=== PATIENT | female | born 2000 | race Caucasian/White ===

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

== ENCOUNTER 2019-08-28 23:30 | Emergency (ER) | payer OTHER ==
[2019-08-28 23:35] VITALS: BP 125/74; PULSE 103; RESP 18; TEMP 97.9
--- NOTE | 2019-08-28 23:59 | ED ---
Wound/Laceration HPI - General Chief Complaint: Wound/Laceration Stated Complaint: R Finger Lac Time Seen by Provider: 08/28/19 23:38 Source: patient, RN notes reviewed, old records reviewed Mode of arrival: ambulatory Limitations: no limitations - History of Present Illness Initial Comments: This is a 19-year-old female DF for evaluation patient sustained left fingertip laceration secondary to mechanical opening for cat. Patient has minimal bleeding from site denying any other injury. Patient has minimal bleeding currently which is normal., She states he feels much her related to prior. No other injury or trauma noted -: minutes(s) Extremity Location: Left: Hand Place: home Patient Tetanus UTD: Yes Context: accidental Associated Symptoms: none - Related Data Home Medications Medication Instructions Recorded Confirmed Medroxyprogesterone Acetate 150 mg IM ONCE 10/28/17 10/28/17 [Depo-Provera] Allergies Allergy/AdvReac Type Severity Reaction Status Date / Time prochlorperazine edisylate Allergy Unknown Verified 08/28/19 23:35 [From Compazine] prochlorperazine maleate Allergy Unknown Verified 08/28/19 23:35 [From Compazine] Review of Systems ROS Statement: Those systems with pertinent positive or pertinent negative responses have been documented in the HPI. ROS Other: All systems not noted in ROS Statement are negative. Past Medical History Past Medical History: No Reported History History of Any Multi-Drug Resistant Organisms: None Reported Past Surgical History: No Surgical Hx Reported, Appendectomy Past Psychological History: No Psychological Hx Reported Smoking Status: Never smoker Past Alcohol Use History: Occasional Past Drug Use History: Marijuana General Exam Limitations: no limitations General appearance: alert, in no apparent distress Head exam: Present: atraumatic, normocephalic, normal inspection Eye exam: Present: normal appearance, PERRL, EOMI. Absent: scleral icterus, conjunctival injection, periorbital swelling ENT exam: Present: normal exam, mucous membranes moist Neck exam: Present: normal inspection. Absent: tenderness, meningismus, lymphadenopathy Respiratory exam: Present: normal lung sounds bilaterally. Absent: respiratory distress, wheezes, rales, rhonchi, stridor Cardiovascular Exam: Present: regular rate, normal rhythm, normal heart sounds. Absent: systolic murmur, diastolic murmur, rubs, gallop, clicks GI/Abdominal exam: Present: soft, normal bowel sounds. Absent: distended, tenderness, guarding, rebound, rigid Extremities exam: Present: normal inspection, full ROM, normal capillary refill, other (Half to 1 cm laceration to fingertip bleeding is stopped). Absent: tenderness, pedal edema, joint swelling, calf tenderness Back exam: Present: normal inspection Neurological exam: Present: alert, oriented X3, CN II-XII intact Psychiatric exam: Present: normal affect, normal mood Skin exam: Present: warm, dry, intact, normal color. Absent: rash Course Vital Signs 08/28/19 23:32 Temperature 97.9 F Pulse Rate 103 H Respiratory 18 Rate Blood Pressure 125/74 O2 Sat by Pulse 100 Oximetry - Reevaluation(s) Reevaluation #1: Medical record is reviewed Bleeding is stopped while here in the ER Procedures - Laceration Laceration #1 Consent Obtained: verbal consent Indication: laceration Site: hand Size (cm): 1 Description: linear Size of Sutures: other (Dermabond) Medical Decision Making - Medical Decision Making 19 female to the ER for evaluation of left finger laceration. Wound is cleaned here in the ER repaired with Dermabond. No active bleeding and patient can be discharged home Disposition Clinical Impression: Laceration, Finger laceration, Laceration of index finger of left hand without complication Disposition: HOME SELF-CARE Condition: Good Instructions (If sedation given, give patient instructions): Laceration (ED), Finger Laceration (ED) Is patient prescribed a controlled substance at d/c from ED?: No Referrals: Darryl Vincent MD [Primary Care Provider] - 1-2 days
[2019-08-29] MEDS ORDERED: TOPICAL SKIN ADHESIVE 1 EACH AMP TOPICAL ONE (00:13)
== END 2019-08-29 00:49 | disposition home or self-care (01) ==
LOC: EC 23:30
DX: S61.211A Laceration without foreign body of left index finger without damage to nail, initial encounter (principal); Z79.3 Long term (current) use of hormonal contraceptives; Z88.8 Allergy status to other drugs, medicaments and biological substances; W26.8XXA Contact with other sharp object(s), not elsewhere classified, initial encounter; Y93.89 Activity, other specified
CPT/HCPCS: 12001; 99283

== ENCOUNTER → 2020-01-08 | Outpatient (CLI) | payer OTHER ==
--- NOTE | 2020-01-08 23:13 | US ---
EXAMINATION TYPE: Transabdominal DATE OF EXAM: 01/08/2020 4:23 PM COMPARISON: NONE CLINICAL HISTORY: Z36 confirm dates, O46.91. dates EXAM PERFORMED: Transabdominal (TA) EXAM MEASUREMENTS: GESTATIONAL AGE / DATING Dates by LMP: (10 weeks/6 days) EDC: 07/30/2020 Dates by First Scan: No previous this is first scan Dates by Current Scan for: (12 weeks/4 days) EDC: 07/18/2020 MATERNAL ANATOMY Uterus: 11.3 x 8.3 x 5.6 cm Right Ovary: 2.8 x 1.9 x 1.2 cm Left Ovary: 2.5 x 1.4 x 1.5 cm Post CDS / Adnexa: wnl Presence of free fluid: no Presence of corpus luteal cyst: right ovarian lesion - 1.3 x 1.4 x 0.8 cm Presence of subchorionic bleed: no GESTATION / SURVEY CRL: 6.0 cm (12 weeks/4 days) MSD: seen, not measured Yolk Sac (normal less than 6mm): Not visualized Heart Rate: 153 bpm Rhythm: Normal IUP: Viable IUP Nuchal Translucency 10-14wks (normal less than 3mm): 1.3 mm Date of LMP: 10/24/2019, G1 Beta HcG (if available): Not available at this time Single live IUP measuring 12 weeks 4 days. IMPRESSION: 1. Single intrauterine gestation estimated at 12 weeks 4 days gestation based on crown-rump length. C ardiac activity measures 153 bpm was observed during the study. 2. Complex cyst on the right ovary
== END | disposition home or self-care (01) ==
LOC: RADUSWWP 16:02
PROVIDERS: ATTEND Obstetrics & Gynecology
DX: O34.80 Maternal care for other abnormalities of pelvic organs, unspecified trimester (principal); N83.201 Unspecified ovarian cyst, right side; Z3A.12 12 weeks gestation of pregnancy
CPT/HCPCS: 76801; 76813

== ENCOUNTER 2020-07-14 00:20 | Inpatient (IN) | payer OTHER ==
[2020-07-14] MEDS ORDERED: CARBOPROST TROMETHAMINE 250 MCG/ML 1 ML AMP IM PRN (01:12)
[2020-07-14] MEDS ORDERED: LIDOCAINE 0.5% (PF) 5 MG/ML (50 ML SDV) SQ PRN (01:12)
[2020-07-14] MEDS ORDERED: METHYLERGONOVINE 0.2 MG/ML 1 ML AMP IM PRN (01:12)
[2020-07-14] MEDS ORDERED: OXYTOCIN 10 UNIT/ML 1 ML VIAL IM PRN (01:12)
[2020-07-14] MEDS ORDERED: TERBUTALINE 1 MG/ML VIAL SQ PRN (01:12)
[2020-07-14] MEDS ORDERED: OXYTOCIN 30 UNITS/500 ML NS 30 UNIT in SALINE 1 500ML.BAG IV SCH ×2 (01:15→13:00)
[2020-07-14] MEDS: LACTATED RINGERS 1,000 ML IV SCH ×4 (01:23→12:09)
[2020-07-14] MEDS ORDERED: AMPICILLIN 2,000 MG in SODIUM CHLORIDE 0.9% 100 ML IVPB ONE (01:30)
[2020-07-14 01:43] LABS: Basophils % (A) 0 %; Eosinophils # (A) 0.1 k/uL (0-0.7); Eosinophils % (A) 1 %; HCT 37.7 % (34.0-46.0); HGB 13.1 gm/dL (11.4-16.0); Lymphocytes # (A) 3.1 k/uL (1.0-4.8); Lymphocytes % (A) 28 %; MCH 30.5 pg (25.0-35.0); MCHC 34.9 g/dL (31.0-37.0); MCV 87.6 fL (80.0-100.0); Mean Platelet Volume 7.1; Monocytes # (A) 0.7 k/uL (0-1.0); Monocytes % (A) 6 %; Neutrophils # (A) 7.1 k/uL (1.3-7.7); Neutrophils % (A) 64 %; Platelet Count 279 k/uL (150-450); WBC 11.2 k/uL (3.8-10.6)
[2020-07-14] MEDS ORDERED: BUTORPHANOL 1 MG/ML 1 ML VIAL IV PRN (03:00)
[2020-07-14] MEDS ORDERED: SODIUM CHLORIDE 0.9% 100 ML BAG ONE (04:29)
[2020-07-14] MEDS ORDERED: ROPIVACAINE 5MG/ML 20ML VIAL ONE (04:29)
[2020-07-14] MEDS ORDERED: fentaNYL (PF) 50 MCG/ML 5 ML AMP ONE (04:29)
[2020-07-14] MEDS ORDERED: ONDANSETRON 4 MG/2 ML VIAL IVP STA (06:26)
[2020-07-14] MEDS: AMPICILLIN 1,000 MG in SODIUM CHLORIDE 0.9% 50 ML IVPB SCH (06:32)
[2020-07-14] MEDS ORDERED: CITRIC ACID-SODIUM CITRATE 15 ML CUP PO ONE (12:03)
[2020-07-14] MEDS ORDERED: KETOROLAC 15 MG/ML 1 ML VIAL ONE (12:05)
[2020-07-14] MEDS ORDERED: fentaNYL (PF) 50 MCG/ML 2 ML AMP ONE (12:05)
[2020-07-14] MEDS ORDERED: DEXAMETHASONE SOD PHOSPHATE 4 MG/ML 1 ML VIAL ONE (12:05)
[2020-07-14] MEDS ORDERED: ONDANSETRON 4 MG/2 ML VIAL ONE (12:05)
[2020-07-14] MEDS ORDERED: OXYTOCIN 10 UNIT/ML 1 ML VIAL ONE (12:05)
[2020-07-14] MEDS ORDERED: MORPHINE SULFATE (PF) 0.3 MG/0.3 ML SYR ONE (12:05)
[2020-07-14] MEDS ORDERED: diphenhydrAMINE 50 MG CAP PO PRN (12:48)
[2020-07-14] MEDS ORDERED: ZOLPIDEM 5 MG TAB PO PRN (12:48)
[2020-07-14] MEDS ORDERED: diphenhydrAMINE 50 MG/ML 1 ML VIAL IVP PRN ×2 (12:48)
[2020-07-14] MEDS ORDERED: METOCLOPRAMIDE 5 MG/ML 2 ML VIAL IVP PRN (12:48)
[2020-07-14] MEDS ORDERED: LANOLIN CREAM 5 GM TUBE TOPICAL PRN (12:48)
[2020-07-14] MEDS ORDERED: diphenhydrAMINE 25 MG CAP PO PRN (12:48)
[2020-07-14] MEDS ORDERED: ONDANSETRON 4 MG/2 ML VIAL IVP PRN (12:48)
[2020-07-14] MEDS ORDERED: NALOXONE 0.4 MG/ML 1 ML VIAL IV PRN (12:48)
[2020-07-14] MEDS ORDERED: SIMETHICONE 80 MG CHEWABLE PO PRN (12:48)
--- NOTE | 2020-07-14 12:52 | P.OP ---
Date of Procedure: 07/14/20 Preoperative Diagnosis: 1. at 39 weeks 2. arrest of descent Postoperative Diagnosis: 1. at 39 weeks 2. arrest of descent Procedure(s) Performed: Primary low transverse Anesthesia: epidural Surgeon: Crys Pearson [employer] #1: Lore Lora Estimated Blood Loss (ml): 600 IV fluids (ml): 800 Urine output (ml): 200 Pathology: none sent Condition: stable Disposition: floor Indications for Procedure: 20-year-old presented at 39 weeks with spontaneous rupture of membranes last night at 11:30 PM. She made slow change throughout the night and into the morning. She was 9 cm for a few hours and then started to push when she was complete. She pushed over an hour and made no descent. Informed consent was obtained and section was called. Operative Findings: Viable female, Apgars 8, 9, weight 7 lbs. 10 oz. Normal uterus, tubes, ovaries. Description of Procedure: Patient was taken to the operating room where spinal anesthesia was found be adequate. She was prepped and draped in normal sterile fashion in dorsal supine position with a leftward tilt. Pfannenstiel skin incision was made the scalpel and carried through to the underlying layer of fascia with the scalpel. Fascia was incised in midline and carried bilaterally with the Pandya scissors. The superior aspect of the fascial incision was grasped with Michael clamps elevated and the underlying rectus muscles dissected off with the Pandya's. Attention was then turned to inferior aspect of same incision which in a similar fashion was grasped tented up and the underlying rectus muscles dissected off with the Pandya's. The rectus muscles were the midline and the peritoneum was identified tented up and entered sharply with the scalpel. The incision was extended superiorly and inferiorly with good visualization of the bladder. The bladder blade was inserted and the vesicouterine peritoneum was incised the Metzenbaums then carried bilaterally and bladder flap created digitally. A low transverse incision was then made on the uterus with the scalpel. This was carried bilaterally and digital manner. Infant's head delivered atraumatically, nose and mouth bulb suctioned, cord clamped and cut, infant handed off to waiting nurses. Apgars 8,9, weight 7 lbs. 10 oz. Placenta delivered manually, intact with three-vessel cord. The uterus is exteriorized and cleared of all clots and debris. The uterine incision was closed with 0 Vicryl in a running locked fashion. Second layer of the same sutures used in imbricating fashion to obtain excellent hemostasis. Bladder flap was then reapproximated using 2-0 Vicryl in a running fashion. Both ovaries and tubes appeared normal. The uterus was placed back into the abdomen. The peritoneum was reapproximated using 2-0 Vicryl in a running fashion. The muscles were reapproximated using 2- 0 Vicryl in interrupted fashion. The fascia was reapproximated using 0 Vicryl in a running fashion. The subcutaneous tissues closed with 3-0 Vicryl running fashion. The skin was closed is[place]. Patient tolerated the procedure well, sponge and instrument counts were correct times 2 and she was taken to the recovery room in stable condition.
[2020-07-14] MEDS: MORPHINE SULFATE 4 MG/ML SYRINGE IVP PRN ×2 (15:44→21:46)
[2020-07-14] MEDS: ACETAMINOPHEN TAB 500 MG TAB PO SCH (17:43)
[2020-07-14] MEDS: KETOROLAC 15 MG/ML 1 ML VIAL IVP SCH (19:44)
[2020-07-14] MEDS: SENNOSIDES-DOCUSATE SODIUM 1 EACH TAB PO SCH (21:40)
[2020-07-15] MEDS: AMPICILLIN 1,000 MG in SODIUM CHLORIDE 0.9% 50 ML IVPB SCH (02:16)
[2020-07-15] MEDS: ACETAMINOPHEN TAB 500 MG TAB PO SCH ×3 (02:18→13:27)
[2020-07-15] MEDS: KETOROLAC 15 MG/ML 1 ML VIAL IVP SCH ×2 (02:27→08:23)
--- NOTE | 2020-07-15 07:03 | P.PN ---
Progress Note - Text Progress Note Date: 07/15/20 Postoperative day 1 status post section under spinal anesthesia, and intrathecal morphine given for postoperative analgesia, patient doing well, there is no anesthesia related complications Patient had no headache, vital signs stable Assessment and plan = postop day 1 status post , doing well there is no anesthesia related complication
[2020-07-15 07:53] LABS: Basophils % (A) 0 %; Eosinophils # (A) 0.1 k/uL (0-0.7); Eosinophils % (A) 0 %; Lymphocytes # (A) 3.6 k/uL (1.0-4.8); Lymphocytes % (A) 20 %; MCH 31.6 pg (25.0-35.0); MCHC 35.3 g/dL (31.0-37.0); MCV 89.5 fL (80.0-100.0); Monocytes % (A) 6 %; Neutrophils # (A) 12.6 k/uL (1.3-7.7); Neutrophils % (A) 72 %; Platelet Count 238 k/uL (150-450); RDW 13.3 % (11.5-15.5); WBC 17.4 k/uL (3.8-10.6)
[2020-07-15 08:17] LABS: HGB 9.2 gm/dL (11.4-16.0)
[2020-07-15] MEDS: SENNOSIDES-DOCUSATE SODIUM 1 EACH TAB PO SCH ×2 (08:23→20:42)
[2020-07-15] MEDS: IBUPROFEN 600 MG TAB PO SCH (20:42)
[2020-07-16] MEDS: ACETAMINOPHEN TAB 500 MG TAB PO SCH ×2 (00:23→07:14)
[2020-07-16] MEDS: IBUPROFEN 600 MG TAB PO SCH (03:37)
--- NOTE | 2020-07-16 08:01 | P.DS ---
Providers Date of admission: 07/14/20 00:51 Expected date of discharge: 07/16/20 Attending physician: Crys Pearson Primary care physician: Stated None - Discharge Diagnosis(es) (1) Status post primary low transverse section Current Visit: Yes Status: Acute Hospital Course: Patient presented in active labor. She underwent a low transverse for arrest of descent. course was uncomplicated. She denies nausea, vomiting, chest pain, shortness of breath or calf pain. Her pain is well- controlled. Her incision is clean, dry, intact. She'll be discharged home postoperative day #2 in stable condition to follow-up with me in one week. Plan - Discharge Summary New Discharge Prescriptions: New Ibuprofen [Motrin] 600 mg PO QID #40 tab oxyCODONE HCL [OxyIR] 5 mg PO Q4HR PRN #20 tab PRN Reason: Pain Scale 4 - 6 No Action Ondansetron [Zofran] 1 tab PO DAILY Discharge Medication List Ondansetron [Zofran] 1 tab PO DAILY 07/14/20 [History] Ibuprofen [Motrin] 600 mg PO QID #40 tab 07/16/20 [Rx] oxyCODONE HCL [OxyIR] 5 mg PO Q4HR PRN #20 tab 07/16/20 [Rx] Follow up Appointment(s)/Referral(s): Crys Pearson DO [Doctor of Osteopathic Medicine] - 1 Week Discharge Disposition: HOME SELF-CARE
--- NOTE | 2020-07-16 08:03 | P.HPOB ---
History of Present Illness H&P Date: 07/14/20 Chief Complaint: SROM. labor 20 year old presents at 39 weeks with SROM at 1130pm last night and contractions. Her cervix is making change and when I checked her at 8am she was 9cm. Category 1 heart tones. Review of Systems All systems: negative Constitutional: Denies chills, Denies fever Eyes: denies blurred vision, denies pain Ears, nose, mouth and throat: Denies headache, Denies sore throat Cardiovascular: Denies chest pain, Denies shortness of breath Respiratory: Denies cough Gastrointestinal: Denies abdominal pain, Denies diarrhea, Denies nausea, Denies vomiting Genitourinary: Denies dysuria, Denies hematuria Musculoskeletal: Denies myalgias Integumentary: Denies pruritus, Denies rash Neurological: Denies numbness, Denies weakness Psychiatric: Denies anxiety, Denies depression Endocrine: Denies fatigue, Denies weight change Past Medical History Past Medical History: No Reported History Additional Past Medical History / Comment(s): pt has hx of anxiety, endometriosis, and ovarian cysts History of Any Multi-Drug Resistant Organisms: None Reported Past Surgical History: No Surgical Hx Reported, Appendectomy Past Psychological History: No Psychological Hx Reported Smoking Status: Never smoker Past Alcohol Use History: None Reported, Occasional Past Drug Use History: Marijuana - Past Family History Mother Family Medical History: No Reported History Medications and Allergies Home Medications Medication Instructions Recorded Confirmed Type Ondansetron [Zofran] 1 tab PO DAILY 07/14/20 07/14/20 History Ibuprofen [Motrin] 600 mg PO QID #40 tab 07/16/20 Rx oxyCODONE HCL [OxyIR] 5 mg PO Q4HR PRN #20 tab 07/16/20 Rx Allergies Allergy/AdvReac Type Severity Reaction Status Date / Time prochlorperazine edisylate Allergy Unknown Verified 07/14/20 00:51 [From Compazine] prochlorperazine maleate Allergy Unknown Verified 07/14/20 00:51 [From Compazine] Exam Osteopathic Statement: *. No significant issues noted on an osteopathic structural exam other than those noted in the History and Physical/Consult. Vital Signs Temp Pulse Resp BP Pulse Ox 07/16/20 00:00 98 F 96 16 107/57 97 07/15/20 16:00 98.1 F 99 18 105/59 96 07/15/20 12:00 98.4 F 83 20 110/63 97 Intake and Output 07/15/20 07/16/20 07/16/20 22:59 06:59 14:59 Other: # Voids 1 1 # Bowel Movements 0 Heart: Regular rate and rhythm Lungs: Clear to auscultation bilaterally Abdomen: Soft, nontender Extremities: Negative Homans sign Results Result Diagrams: 07/15/20 07:29 Abnormal Lab Results - Last 24 Hours (Table) 07/15/20 Range/Units 07:29 WBC 17.4 H (3.8-10.6) k/uL RBC 2.90 L (3.80-5.40) m/uL Hgb 9.2 L D (11.4-16.0) gm/dL Hct 26.0 L (34.0-46.0) % Neutrophils # 12.6 H (1.3-7.7) k/uL Assessment and Plan (1) Normal labor Current Visit: Yes Status: Acute Code(s): O80 - ENCOUNTER FOR FULL-TERM UNCOMPLICATED DELIVERY; Z37.9 - OUTCOME OF DELIVERY, UNSPECIFIED SNOMED Code(s): 59901179 Plan: 1. expectant management
[2020-07-16 08:17] VITALS: BP 112/72; PULSE 89; RESP 18; TEMP 98.4
[2020-07-16] MEDS: SENNOSIDES-DOCUSATE SODIUM 1 EACH TAB PO SCH (09:42)
== END 2020-07-16 11:30 | disposition home or self-care (01) | DRG 788 ==
LOC: FBPOP 00:20 → 4FBP 00:51
PROVIDERS: ADMIT Obstetrics & Gynecology; ATTEND Obstetrics & Gynecology
PROC: 10D00Z1 Extraction of Products of Conception, Low, Open Approach (ICD-10-PCS; principal; 2020-07-14 12:12)
DX: O62.1 Secondary uterine inertia (principal); Z37.0 Single live birth; Z3A.39 39 weeks gestation of pregnancy
CPT/HCPCS: 59025; 84112; 85025; 86850; 86900; 86901; 99213

== ENCOUNTER 2020-10-17 21:21 | Emergency (ER) | payer OTHER ==
[2020-10-17 21:26] VITALS: TEMP 97.3
[2020-10-17] MEDS ORDERED: IBUPROFEN 600 MG TAB PO STA (21:56)
--- NOTE | 2020-10-17 22:20 | XR ---
EXAMINATION TYPE: XR foot complete LT DATE OF EXAM: 10/17/2020 COMPARISON: NONE HISTORY: Foot pain TECHNIQUE: 3 views FINDINGS: Metatarsals are intact. I see no fracture nor dislocation. Joint spaces are normal. There i s minimal soft tissue swelling of the forefoot. The toes appear intact. IMPRESSION: No fracture.. Minimal soft tissue swelling.
--- NOTE | 2020-10-17 22:26 | ED ---
Lower Extremity Injury HPI - General Chief Complaint: Extremity Injury, Lower Stated Complaint: Left ankle sprain Time Seen by Provider: 10/17/20 21:27 Source: patient Mode of arrival: wheelchair Limitations: no limitations - History of Present Illness Initial Comments: Patient is a 20-year-old female presenting to the emergency Department with complaints of pain in her left foot. Patient states she was doing the float down all day, when she came back to shore and stepped out of her tube she twisted her left foot. She has pain and some mild swelling present. She denies any left ankle pain or left knee pain. A previous injuries to her left foot or surgeries. She has no further complaints. - Related Data Home Medications Medication Instructions Recorded Confirmed Ondansetron [Zofran] 1 tab PO DAILY 07/14/20 07/14/20 Previous Rx's Medication Instructions Recorded Ibuprofen [Motrin] 600 mg PO QID #40 tab 07/16/20 oxyCODONE HCL [OxyIR] 5 mg PO Q4HR PRN #20 tab 07/16/20 Allergies Allergy/AdvReac Type Severity Reaction Status Date / Time prochlorperazine edisylate Allergy Unknown Verified 10/17/20 21:26 [From Compazine] prochlorperazine maleate Allergy Unknown Verified 10/17/20 21:26 [From CADsurf] Review of Systems ROS Statement: Those systems with pertinent positive or pertinent negative responses have been documented in the HPI. ROS Other: All systems not noted in ROS Statement are negative. Past Medical History Past Medical History: No Reported History Additional Past Medical History / Comment(s): pt has hx of anxiety, endometriosis, and ovarian cysts History of Any Multi-Drug Resistant Organisms: None Reported Past Surgical History: Appendectomy, Section Past Psychological History: No Psychological Hx Reported Smoking Status: Never smoker Past Alcohol Use History: Occasional Past Drug Use History: Marijuana - Past Family History Mother Family Medical History: No Reported History General Exam - General Exam Comments Initial Comments: GENERAL: Patient is well-developed and well-nourished. Patient is nontoxic and in no acute distress. HEAD: Atraumatic, normocephalic. EYES: Pupils equal round and reactive to light, extraocular movements intact, sclera anicteric, conjunctiva are normal. Eyelids were unremarkable. LUNGS: Unlabored respirations. Breath sounds clear to auscultation bilaterally and equal. No wheezes rales or rhonchi. HEART: Regular rate and rhythm without murmurs, rubs or gallops. MUSCULOSKELETAL: pain with palpation of the lateral aspect of the left foot, no pain of left ankle. She does have some mild swelling present and no obvious deformity, no redness. Neurovascular intact. No clubbing or cyanosis. NEUROLOGICAL: Patient is alert and oriented x 3. SKIN: Warm, Dry, normal turgor, no rashes or lesions noted. Limitations: no limitations Course Vital Signs 10/17/20 10/17/20 21:24 22:35 Temperature 97.3 F L Pulse Rate 116 H 98 Respiratory 22 16 Rate Blood Pressure 109/70 110/72 O2 Sat by Pulse 99 99 Oximetry Medical Decision Making - Medical Decision Making patient is a 20-year-old female here with left foot pain after she twisted it while stepping off of her tube. X-rays today reveal no acute fractures dislocations. Discussed with patient this is a foot sprain. Recommended ice to the area, ibuprofen for discomfort. I did give her dose of ibuprofen here. She is stable for discharge, she can follow up with her family doctor. Discussed with Dr. Pearce. Disposition Clinical Impression: Sprain of left foot Disposition: HOME SELF-CARE Condition: Stable Instructions (If sedation given, give patient instructions): Foot Sprain (ED) Additional Instructions: Please return to the Emergency Department if symptoms worsen or any other concerns. Please apply ice to the area, take Tylenol or ibuprofen for any discomfort. Follow up with your physician if symptoms persist after one week without improvement. Is patient prescribed a controlled substance at d/c from ED?: No Referrals: None,Stated [Primary Care Provider] - 1-2 days Time of Disposition: 22:26
[2020-10-17 22:36] VITALS: BP 110/72; PULSE 98; RESP 16
== END 2020-10-17 22:36 | disposition home or self-care (01) ==
LOC: EC 21:21
DX: S93.602A Unspecified sprain of left foot, initial encounter (principal); F41.9 Anxiety disorder, unspecified; F12.90 Cannabis use, unspecified, uncomplicated; X50.1XXA Overexertion from prolonged static or awkward postures, initial encounter
CPT/HCPCS: 99283

== ENCOUNTER → 2021-08-30 | Outpatient (CLI) | payer OTHER ==
[2021-08-30 18:04] LABS: Basophils # (A) 0.05 X 10*3/uL (0.00-0.10); Basophils % (A) 0.6 %; Eosinophils # (A) 0.16 X 10*3/uL (0.04-0.35); HCT 45.8 % (37.2-46.3); HGB 15.1 g/dL (12.0-15.0); Immature Grans, Automated 0.3 %; Lymphocytes # (A) 2.89 X 10*3/uL (0.90-5.00); Lymphocytes % (A) 36.6 %; MCH 29.2 pg (27.0-32.0); MCV 88.6 fL (80.0-97.0); Mean Platelet Volume 9.5 fL (9.5-12.2); Monocytes % (A) 5.1 %; NRBC Per 100 WBC 0 /100 WBCS (0.0-0.0); Neutrophils # (A) 4.37 X 10*3/uL (1.80-7.70); Neutrophils % (A) 55.4 %; Platelet Count 337 X 10*3/uL (140-440); RBC 5.17 X 10*6/uL (4.10-5.20); RDW 12.3 % (11.5-14.5); WBC 7.89 X 10*3/uL (4.50-10.00)
[2021-08-30 18:19] LABS: African American GFR (CKD) 118.1 (60.0-200.0); Albumin 3.8 g/dL (3.8-4.9); Albumin/Globulin Ratio 2.03 (1.60-3.17); BUN/Creat Ratio 8.75 Ratio (12.00-20.00); Blood Urea Nitrogen 7.1 mg/dL (9.0-27.0); Calcium 9.1 mg/dL (8.7-10.3); Carbon Dioxide 22.3 mmol/L (20.0-27.5); Globulin 1.9 g/dL (1.6-3.3); HDL Cholesterol 30.5 mg/dL (40.00-60.00); Non-African American GFR(CKD) 101.9 (60.0-200.0); Potassium 3.7 mmol/L (3.5-5.5); T4, Free (Free Thyroxine) 1.2 ng/dL (0.800-1.800); Total Bilirubin 0.4 mg/dL (0.30-1.20); Total Protein 5.7 g/dL (6.2-8.2); Triglycerides 46.5 mg/dL (0.00-149.00)
[2021-08-30 18:44] LABS: Chol/HDL Ratio 1.91 Ratio; LDL Cholesterol,Direct Reflex 20.6 mg/dL (0.00-129.00)
== END | disposition home or self-care (01) ==
LOC: LABWHC1 11:30
PROVIDERS: ATTEND Family Medicine
DX: Z00.00 Encounter for general adult medical examination without abnormal findings (principal); Z11.59 Encounter for screening for other viral diseases
CPT/HCPCS: 36415; 80053; 80061; 83721; 84439; 84443; 85025; 86803

== ENCOUNTER → 2021-09-21 | Outpatient (CLI) | payer OTHER ==
[2021-09-21 22:27] LABS: African American GFR (CKD) 104.5 (60.0-200.0); Anion Gap 10.4 mmol/L (10.00-18.00); BUN/Creat Ratio 19.11 Ratio (12.00-20.00); Blood Urea Nitrogen 17.2 mg/dL (9.0-27.0); Calcium 9.2 mg/dL (8.7-10.3); Carbon Dioxide 23.6 mmol/L (20.0-27.5); Non-African American GFR(CKD) 90.1 (60.0-200.0); Potassium 3.9 mmol/L (3.5-5.5)
== END | disposition home or self-care (01) ==
LOC: LABWHC1 09:54
PROVIDERS: ATTEND Family Medicine
DX: R73.9 Hyperglycemia, unspecified (principal)
CPT/HCPCS: 36415; 80048; 83036

== ENCOUNTER 2022-11-05 17:38 | Emergency (ER) | payer OTHER ==
[2022-11-05 17:42] VITALS: TEMP 98.2
[2022-11-05] MEDS ORDERED: KETOROLAC 15 MG/ML 1 ML VIAL IVP STA (18:23)
[2022-11-05] MEDS ORDERED: LIDOCAINE 1% INJ 10MG/ML (20 ML MDV) SQ ONE (18:23)
[2022-11-05 18:44] LABS: Basophils % (A) 0 %; Eosinophils # (A) 0.4 k/uL (0-0.7); Eosinophils % (A) 3 %; HCT 43.7 % (34.0-46.0); Lymphocytes # (A) 3.2 k/uL (1.0-4.8); Lymphocytes % (A) 30 %; MCH 30.2 pg (25.0-35.0); MCHC 34.4 g/dL (31.0-37.0); MCV 87.7 fL (80.0-100.0); Mean Platelet Volume 7.4; Monocytes # (A) 0.6 k/uL (0-1.0); Monocytes % (A) 5 %; Neutrophils # (A) 6.3 k/uL (1.3-7.7); Neutrophils % (A) 59 %; Platelet Count 380 k/uL (150-450); RBC 4.98 m/uL (3.80-5.40); RDW 12.4 % (11.5-15.5); WBC 10.7 k/uL (3.8-10.6)
[2022-11-05 18:57] LABS: ALT 43 U/L (4-34); AST 33 U/L (14-36); African American GFR (CKD) >90 (>60 ml/min/1.73 sqM); Albumin 4.1 g/dL (3.5-5.0); Alkaline Phosphatase 53 U/L (38-126); Anion Gap 10 mmol/L; Blood Urea Nitrogen 14 mg/dL (7-17); Calcium 9.5 mg/dL (8.4-10.2); Carbon Dioxide 25 mmol/L (22-30); Chloride 105 mmol/L (98-107); Glucose 94 mg/dL (74-99); Non-African American GFR(CKD) >90 (>60 ml/min/1.73 sqM); Sodium 140 mmol/L (137-145); Total Bilirubin 0.6 mg/dL (0.2-1.3); Total Protein 7.2 g/dL (6.3-8.2)
[2022-11-05] MEDS ORDERED: CEPHALEXIN 500 MG CAP PO STA (19:02)
[2022-11-05] MEDS ORDERED: SULFAMETHOX-TMP 800-160MG 1 EACH TAB PO STA (19:03)
--- NOTE | 2022-11-05 19:44 | ED ---
Skin/Abscess/FB HPI - General Chief complaint: Skin/Abscess/Foreign Body Stated complaint: Rash Time Seen by Provider: 11/05/22 17:46 Source: patient Mode of arrival: ambulatory Limitations: no limitations - History of Present Illness Initial comments: Patient is a 22-year-old female who presents to the emergency department for rash. Patient reports a red spot with pain in her inner right thigh which started approximately 5 days ago. States she has been delayed here on twice. Initially they told her it was an ALLERGIC reaction and 2 days ago told her it was an infection she was placed on antibiotics. Patient states the redness is worsening now traveling down her thigh. No fever or chills. No nausea or vomiting - Related Data Home Medications Medication Instructions Recorded Confirmed Ondansetron [Zofran] 1 tab PO DAILY 07/14/20 07/14/20 Previous Rx's Medication Instructions Recorded Ibuprofen [Motrin] 600 mg PO QID #40 tab 07/16/20 oxyCODONE HCL [OxyIR] 5 mg PO Q4HR PRN #20 tab 07/16/20 Lidocaine 5% Patch [Lidoderm 5% 1 patch TOPICAL DAILY PRN 14 Days 09/24/22 Patch] #14 patch Cephalexin [Keflex] 500 mg PO Q6HR #40 cap 11/05/22 Ibuprofen [Motrin] 800 mg PO Q6HR #30 tab 11/05/22 Sulfamethox-Tmp 800-160Mg [Bactrim 1 each PO Q12HR #20 tab 11/05/22 Ds] Allergies Allergy/AdvReac Type Severity Reaction Status Date / Time prochlorperazine edisylate Allergy Unknown Verified 11/05/22 17:42 [From Compazine] prochlorperazine maleate Allergy Unknown Verified 11/05/22 17:42 [From Compazine] Review of Systems ROS Statement: Those systems with pertinent positive or pertinent negative responses have been documented in the HPI. ROS Other: All systems not noted in ROS Statement are negative. Past Medical History Past Medical History: No Reported History Additional Past Medical History / Comment(s): pt has hx of anxiety, endometriosis, and ovarian cysts History of Any Multi-Drug Resistant Organisms: None Reported Past Surgical History: Appendectomy, Section Past Psychological History: No Psychological Hx Reported Smoking Status: Never smoker Past Alcohol Use History: Occasional Past Drug Use History: Marijuana - Past Family History Mother Family Medical History: No Reported History General Exam Limitations: no limitations General appearance: alert Respiratory exam: Present: normal lung sounds bilaterally. Absent: respiratory distress, wheezes, rales, rhonchi, stridor Cardiovascular Exam: Present: regular rate, normal rhythm, normal heart sounds. Absent: systolic murmur, diastolic murmur, rubs, gallop, clicks Extremities exam: Present: other (3 by 2 cm abscess anterior-medial right inner thigh with mild fluctuance. Surrounding erythema over anterior thigh ending before the knee. Neurovascularly intact. Full range of motion) Neurological exam: Present: alert Psychiatric exam: Present: normal affect, normal mood Skin exam: Present: warm, dry, intact, normal color. Absent: rash Course Vital Signs 11/05/22 11/05/22 17:39 19:53 Temperature 98.2 F Pulse Rate 79 77 Respiratory 20 18 Rate Blood Pressure 113/79 114/76 O2 Sat by Pulse 99 97 Oximetry Procedures - Incision & Drainage Site: lower extremity I&D Cleaning Method: Betadine Sterile Field Used?: Yes Scalpel Used: #15 I&D Drainage Obtained: Pus, Blood Packing: Iodoform Culture Obtained?: Yes Patient Tolerated Procedure: well, no complications Medical Decision Making - Medical Decision Making Was pt. sent in by a medical professional or institution (Dr. PA, ROAD MANAGER, urgent care, hospital, or skilled nursing...) When possible be specific @ -No Did you speak to anyone other than the patient for history (EMS, parent, family, police, friend...)? What history was obtained from this source @ -No Did you review nursing and triage notes (agree or disagree)? Why? @ -I reviewed and agree with nursing and triage notes Were old charts reviewed (outside hosp., previous admission, EMS record, old EKG, old radiological studies, urgent care reports/EKG's, skilled nursing records)? Report findings @ -No old charts were reviewed Differential Diagnosis (chest pain, altered mental status, abdominal pain women, abdominal pain men, vaginal bleeding, weakness, fever, dyspnea, syncope, headache, dizziness, GI bleed, back pain, seizure, CVA, palpatations, mental health)? @ -ALLERGIC reaction, cellulitis, abscess EKG interpreted by me (3pts min.). @ -As above X-rays interpreted by me (1pt min.). @ -None done CT interpreted by me (1pt min.). @ -None done U/S interpreted by me (1pt. min.). @ -None done What testing was considered but not performed or refused? (CT, X-rays, U/S, labs)? Why? @ -None What meds were considered but not given or refused? Why? @ -None Did you discuss the management of the patient with other professionals (professionals i.e. DrRobert, PA, ROAD MANAGER, lab, RT, psych nurse, social work supervisor, director merit system, teacher, ict help desk officer, foster care case manager)? Give summary @ -No Was smoking cessation discussed for >3mins.? @ -No Was critical care preformed (if so, how long)? @ -No Were there social determinants of health that impacted care today? How? (Homelessness, low income, unemployed, alcoholism, drug addiction, transportation, low edu. Level, literacy, decrease access to med. care, intermediate, rehab)? @ -No Was there de-escalation of care discussed even if they declined (Discuss DNR or withdrawal of care, Hospice)? DNR status @ -No What co-morbidities impacted this encounter? (DM, HTN, Smoking, COPD, CAD, Cancer, CVA, ARF, Chemo, Hep., AIDS, mental health diagnosis, sleep apnea, mor bid obesity)? @ -None Was patient admitted / discharged? Hospital course, mention meds given and route, prescriptions, significant lab abnormalities, going to OR and other pertinent info. @ -Patient has abscess to the anterior-medial aspect of right inner thigh. She has surrounding cellulitis traveling down the anterior aspect of thigh ending just before knee. No systemic symptoms or signs. Very minimal leukocytosis at 10.7. I performed incision and drainage. Thick purulent fluid was drained. Packing was performed. Wound culture pending. Discussed abscess care in detail. Patient placed on Keflex and Bactrim. She will follow up with her primary care provider. Strict return parameters discussed. Undiagnosed new problem with uncertain prognosis? @ -No Drug Therapy requiring intensive monitoring for toxicity (Heparin, Nitro, Insulin, Cardizem)? @ -No Were any procedures done? @ -[Incision and drainage Diagnosis/symptom? @ -Abscess, cellulitis Acute, or Chronic, or Acute on Chronic? @ -Acute Uncomplicated (without systemic symptoms) or Complicated (systemic symptoms)? @ -Uncomplicated Side effects of treatment? @ -No Exacerbation, Progression, or Severe Exacerbation? @ -No Poses a threat to life or bodily function? How? (Chest pain, [place], HI, pneumonia, PE, COPD, DKA, ARF, appy, cholecystitis, CVA, Diverticulitis, Homicidal, Suicidal, threat to staff... and all critical care pts) @ -No Dr. Pearce is my attending - Lab Data Result diagrams: 11/05/22 18:33 11/05/22 18:33 Lab Results 11/05/22 11/05/22 11/05/22 Range/Units 18:33 18:33 18:33 WBC 10.7 H (3.8-10.6) k/uL RBC 4.98 (3.80-5.40) m/uL Hgb 15.0 (11.4-16.0) gm/dL Hct 43.7 (34.0-46.0) % MCV 87.7 (80.0-100.0) fL MCH 30.2 (25.0-35.0) pg MCHC 34.4 (31.0-37.0) g/dL RDW 12.4 (11.5-15.5) % Plt Count 380 (150-450) k/uL MPV 7.4 Neutrophils % 59 % Lymphocytes % 30 % Monocytes % 5 % Eosinophils % 3 % Basophils % 0 % Neutrophils # 6.3 (1.3-7.7) k/uL Lymphocytes # 3.2 (1.0-4.8) k/uL Monocytes # 0.6 (0-1.0) k/uL Eosinophils # 0.4 (0-0.7) k/uL Basophils # 0.0 (0-0.2) k/uL Sodium 140 (137-145) mmol/L Potassium 4.0 (3.5-5.1) mmol/L Chloride 105 (98-107) mmol/L Carbon Dioxide 25 (22-30) mmol/L Anion Gap 10 mmol/L BUN 14 (7-17) mg/dL Creatinine 0.72 (0.52-1.04) mg/dL Est GFR (CKD-EPI)AfAm >90 (>60 ml/min/1.73 sqM) Est GFR (CKD-EPI)NonAf >90 (>60 ml/min/1.73 sqM) Glucose 94 (74-99) mg/dL Plasma Lactic Acid Raymond 0.7 (0.7-2.0) mmol/L Calcium 9.5 (8.4-10.2) mg/dL Total Bilirubin 0.6 (0.2-1.3) mg/dL AST 33 (14-36) U/L ALT 43 H (4-34) U/L Alkaline Phosphatase 53 (38-126) U/L Total Protein 7.2 (6.3-8.2) g/dL Albumin 4.1 (3.5-5.0) g/dL Disposition Clinical Impression: Abscess, Cellulitis Disposition: HOME SELF-CARE Condition: Good Instructions (If sedation given, give patient instructions): Abscess Incision and Drainage (ED), Abscess (ED) Additional Instructions: Take antibiotic as directed. Please keep packing in as long as possible to keep the pathway for continuous drainage. You may take the packing out when antibiotics are finished. Use warm compress throughout the day to assist drainage. Change dressing every 24 hours or if saturated. Keep wound clean and dry. Wash the wound with a mild soap during dressing change and be sure to dry thoroughly. If you need more dressing supplies or tape you can find some at a local pharmacy. Take Tylenol or Motrin for pain. Follow-up with primary care provider in 1 to 2 days. Return to the emergency department if you experience new, concerning, or worsening symptoms. Prescriptions: Sulfamethox-Tmp 800-160Mg [Bactrim Ds] 1 each PO Q12HR #20 tab Cephalexin [Keflex] 500 mg PO Q6HR #40 cap Ibuprofen [Motrin] 800 mg PO Q6HR #30 tab Is patient prescribed a controlled substance at d/c from ED?: No Referrals: Darryl Vincent MD [Primary Care Provider] - 1-2 days
[2022-11-05 19:54] VITALS: BP 114/76; PULSE 77; RESP 18
== END 2022-11-05 19:54 | disposition home or self-care (01) ==
LOC: EC 17:38
DX: L02.415 Cutaneous abscess of right lower limb (principal); L03.115 Cellulitis of right lower limb; B95.62 Methicillin resistant Staphylococcus aureus infection as the cause of diseases classified elsewhere; F12.90 Cannabis use, unspecified, uncomplicated; Z88.8 Allergy status to other drugs, medicaments and biological substances
CPT/HCPCS: 99283; 96374; 10060; 36415; 80053; 83605; 85025; 87070; 87205; 87077; 87186; J2001; J1885

== ENCOUNTER 2023-02-16 15:40 | Emergency (ER) | payer OTHER ==
[2023-02-16 16:02] VITALS: BP 112/75; PULSE 89; RESP 18; TEMP 97.9
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
== END 2023-02-16 19:16 | disposition home or self-care (01) ==
LOC: EC 15:40
DX: S09.90XA Unspecified injury of head, initial encounter (principal); F12.90 Cannabis use, unspecified, uncomplicated; Z88.8 Allergy status to other drugs, medicaments and biological substances; V89.2XXA Person injured in unspecified motor-vehicle accident, traffic, initial encounter; Y92.411 Interstate highway as the place of occurrence of the external cause
CPT/HCPCS: 70450; 71046; 72125; 81025; 99285

== ENCOUNTER 2023-02-21 17:03 | Emergency (ER) | payer OTHER ==
[2023-02-21 18:05] VITALS: TEMP 97.5
--- NOTE | 2023-02-21 18:09 | ED ---
Female Urogenital HPI - General Source: patient, RN notes reviewed Mode of arrival: ambulatory Limitations: no limitations <Sarah Monzon - Last Filed: 02/21/23 18:08> - General Source: patient, RN notes reviewed Mode of arrival: ambulatory Limitations: no limitations <Angle Okeefe - Last Filed: 02/22/23 01:54> - General Chief complaint: Vaginal Bleeding Stated complaint: Camping/Vaginal Bleeding-4wks Time Seen by Provider: 02/21/23 18:08 - History of Present Illness Initial comments: Patient is a 22-year-old female presented ER chief complaint of abdominal cramping and vaginal bleeding. Patient is but is unsure her gestation. Patient is endorsing some dizziness and lightheadedness. Patient denies any fevers, chills, night sweats, shortness of breath, chest pain. (Sarah Monzon) 22-year-old female presents to the emergency department for evaluation of abdominal cramping and vaginal bleeding. Patient states that she believes she is around 4 weeks . Last menstrual period [id number]. She states that 3 days ago she had a positive test at home. Today she noticed some lower abdominal cramping with associated bleeding. She states that it is light bleeding. She denies fever, chills. (Angle Okeefe) - Related Data Home Medications Medication Instructions Recorded Confirmed Ondansetron [Zofran] 1 tab PO DAILY 07/14/20 07/14/20 Previous Rx's Medication Instructions Recorded Ibuprofen [Motrin] 600 mg PO QID #40 tab 07/16/20 oxyCODONE HCL [OxyIR] 5 mg PO Q4HR PRN #20 tab 07/16/20 Lidocaine 5% Patch [Lidoderm 5% 1 patch TOPICAL DAILY PRN 14 Days 09/24/22 Patch] #14 patch Cephalexin [Keflex] 500 mg PO Q6HR #40 cap 11/05/22 Ibuprofen [Motrin] 800 mg PO Q6HR #30 tab 11/05/22 Sulfamethox-Tmp 800-160Mg [Bactrim 1 each PO Q12HR #20 tab 11/05/22 Ds] Albuterol Inhaler [Ventolin Hfa 1 - 2 puff INHALATION Q6H PRN #1 11/26/22 Inhaler] each Benzonatate [Tessalon Perles] 100 mg PO TID PRN #15 capsule 11/26/22 predniSONE 10 mg PO DIRECTED #12 tab 11/26/22 Allergies Allergy/AdvReac Type Severity Reaction Status Date / Time prochlorperazine edisylate Allergy Unknown Verified 02/21/23 17:46 [From Compazine] prochlorperazine maleate Allergy Unknown Verified 02/21/23 17:46 [From Compazine] Review of Systems ROS Other: All systems not noted in ROS Statement are negative. <Sarah Monzon - Last Filed: 02/21/23 18:08> ROS Other: All systems not noted in ROS Statement are negative. <Angle Okeefe - Last Filed: 02/22/23 01:54> ROS Statement: Those systems with pertinent positive or pertinent negative responses have been documented in the HPI. Past Medical History Past Medical History: No Reported History Additional Past Medical History / Comment(s): pt has hx of anxiety, endometriosis, and ovarian cysts History of Any Multi-Drug Resistant Organisms: MRSA Date of last positivie culture/infection: 11/05/22 MDRO Source:: Right Leg Past Surgical History: Appendectomy, Section Past Psychological History: No Psychological Hx Reported Smoking Status: Never smoker Past Alcohol Use History: Occasional Past Drug Use History: Marijuana - Past Family History Mother Family Medical History: No Reported History <Sarah Monzon - Last Filed: 02/21/23 18:08> General Exam Limitations: no limitations <Sarah Monzon - Last Filed: 02/21/23 18:08> Limitations: no limitations General appearance: alert, in no apparent distress Head exam: Present: atraumatic, normocephalic, normal inspection Eye exam: Present: normal appearance, PERRL, EOMI. Absent: scleral icterus, conjunctival injection, periorbital swelling ENT exam: Present: normal exam, mucous membranes moist Neck exam: Present: normal inspection. Absent: tenderness, meningismus, lymphadenopathy Respiratory exam: Present: normal lung sounds bilaterally. Absent: respiratory distress, wheezes, rales, rhonchi, stridor Cardiovascular Exam: Present: regular rate, normal rhythm, normal heart sounds. Absent: systolic murmur, diastolic murmur, rubs, gallop, clicks GI/Abdominal exam: Present: soft, normal bowel sounds. Absent: distended, t enderness, guarding, rebound, rigid Extremities exam: Present: normal inspection Back exam: Present: normal inspection Neurological exam: Present: alert, oriented X3 Psychiatric exam: Present: normal affect, normal mood Skin exam: Present: warm, dry, intact, normal color. Absent: rash <Angle Okeefe - Last Filed: 02/22/23 01:54> - General Exam Comments Initial Comments: Visual Physical Exam Vital signs reviewed General: Well-appearing, nontoxic, no acute distress. Head: Normocephalic, atraumatic Eyes: PERRLA, EOMI ENT: Airway patent Chest: Nonlabored breathing Skin: No visual rash, normal skin tone Neuro: Alert and oriented 3 Musculoskeletal: No gross abnormalities (Sarah Monzon) Course Vital Signs 02/21/23 02/21/23 02/21/23 17:43 21:13 21:57 Temperature 97.5 F L Pulse Rate 82 80 71 Respiratory 20 18 18 Rate Blood Pressure 125/85 110/77 120/87 O2 Sat by Pulse 98 98 99 Oximetry Medical Decision Making <Sarah Monzon - Last Filed: 02/21/23 18:08> - Lab Data Result diagrams: 02/21/23 17:51 02/21/23 17:51 <Angle Okeefe - Last Filed: 02/22/23 01:54> - Medical Decision Making I performed the quick note portion of the exam. Electronically signed by Sarah Monzon PA-C (Sarah Monzon) Was pt. sent in by a medical professional or institution (NINOSKA Sweet, PRINTER MAINTAINER, urgent care, hospital, or half-way...) When possible be specific @ -No Did you speak to anyone other than the patient for history (EMS, parent, family, police, friend...)? What history was obtained from this source @ -No Did you review nursing and triage notes (agree or disagree)? Why? @ -I reviewed and agree with nursing and triage notes Were old charts reviewed (outside hosp., previous admission, EMS record, old EKG, old radiological studies, urgent care reports/EKG's, half-way records)? Report findings @ -No old charts were reviewed Differential Diagnosis (chest pain, altered mental status, abdominal pain women, abdominal pain men, vaginal bleeding, weakness, fever, dyspnea, syncope, headache, dizziness, GI bleed, back pain, seizure, CVA, palpatations, mental health, musculoskeletal)? @ -Differential Vaginal Bleeding: Spontaneous , threatened , molar , ectopic , bloody show, incompetent cervix, abruptioplacenta, placenta previa, uterine rupture, dysfunctional uterine bleeding, hemorrhage, uterine fibroids, this is not meant to be an all-inclusive list. EKG interpreted by me (3pts min.). @ -None X-rays interpreted by me (1pt min.). @ -None done CT interpreted by me (1pt min.). @ -None done U/S interpreted by me (1pt. min.). @ -Ultrasound shows no evidence of intrauterine at this time What testing was considered but not performed or refused? (CT, X-rays, U/S, labs)? Why? @ -None What meds were considered but not given or refused? Why? @ -None Did you discuss the management of the patient with other professionals (professionals i.e. , PA, PRINTER MAINTAINER, lab, RT, psych nurse, social worker assistant, bark skinner, teacher, senior credit officer, medical case worker)? Give summary @ -No Was smoking cessation discussed for >3mins.? @ -No Was critical care preformed (if so, how long)? @ -No Were there social determinants of health that impacted care today? How? (Homelessness, low income, unemployed, alcoholism, drug addiction, transportation, low edu. Level, literacy, decrease access to med. care, retirement, rehab)? @ -No Was there de-escalation of care discussed even if they declined (Discuss DNR or withdrawal of care, Hospice)? DNR status @ -No What co-morbidities impacted this encounter? (DM, HTN, Smoking, COPD, CAD, Cancer, CVA, ARF, Chemo, Hep., AIDS, mental health diagnosis, sleep apnea, morbid obesity)? @ -None Was patient admitted / discharged? Hospital course, mention meds given and route, prescriptions, significant lab abnormalities, going to OR and other pertinent info. @ -Discharged. Patient presented to the emergency department for evaluation of vaginal bleeding in . Patient states that she had a positive test 3 days ago. Today she notes bright red blood coming from the vagina which she states is light not utilizing an entire pad. Laboratory studies obtained.CBC shows WBC 11.2, hemoglobin 14.6; CMP unremarkable; UA shows negative nitrite, small leukocyte esterase, 8 squamous cells here forculture. Ultrasound shows no signs of intrauterine uterine at this time. Patient advised on findings and current hCG. Patient given lab slip for redrawn in 48 hours and advised to follow-up with her MUSIC COMPOSITION TEACHER. Patient understands. We'll plan. Patient stable at time of discharge. Case discussed with Dr. Cunha Undiagnosed new problem with uncertain prognosis? @ -No Drug Therapy requiring intensive monitoring for toxicity (Heparin, Nitro, Insulin, Cardizem)? @ -No Were any procedures done? @ -No Diagnosis/symptom? @ -vaginal bleeding Acute, or Chronic, or Acute on Chronic? @ -acute Uncomplicated (without systemic symptoms) or Complicated (systemic symptoms)? @ -uncomplicated Side effects of treatment? @ -No Exacerbation, Progression, or Severe Exacerbation? @ -No Poses a threat to life or bodily function? How? (Chest pain, [place], [place], pneumonia, PE, COPD, DKA, ARF, appy, cholecystitis, CVA, Diverticulitis, Homicidal, Suicida l, threat to staff... and all critical care pts) @ -No (Angle Okeefe) - Lab Data Lab Results 02/21/23 02/21/23 02/21/23 Range/Units 17:51 17:51 17:51 WBC 11.2 H (3.8-10.6) k/uL RBC 4.89 (3.80-5.40) m/uL Hgb 14.6 (11.4-16.0) gm/dL Hct 42.2 (34.0-46.0) % MCV 86.3 (80.0-100.0) fL MCH 29.9 (25.0-35.0) pg MCHC 34.6 (31.0-37.0) g/dL RDW 12.2 (11.5-15.5) % Plt Count 358 (150-450) k/uL MPV 6.7 Neutrophils % 61 % Lymphocytes % 31 % Monocytes % 4 % Eosinophils % 2 % Basophils % 1 % Neutrophils # 6.8 (1.3-7.7) k/uL Lymphocytes # 3.5 (1.0-4.8) k/uL Monocytes # 0.4 (0-1.0) k/uL Eosinophils # 0.3 (0-0.7) k/uL Basophils # 0.1 (0-0.2) k/uL Sodium 141 (137-145) mmol/L Potassium 4.1 (3.5-5.1) mmol/L Chloride 106 (98-107) mmol/L Carbon Dioxide 24 (22-30) mmol/L Anion Gap 11 mmol/L BUN 13 (7-17) mg/dL Creatinine 0.64 (0.52-1.04) mg/dL Est GFR (CKD-EPI)AfAm >90 (>60 ml/min/1.73 sqM) Est GFR (CKD-EPI)NonAf >90 (>60 ml/min/1.73 sqM) Glucose 94 (74-99) mg/dL Calcium 9.3 (8.4-10.2) mg/dL Total Bilirubin 0.4 (0.2-1.3) mg/dL AST 35 (14-36) U/L ALT 46 H (4-34) U/L Alkaline Phosphatase 53 (38-126) U/L Total Protein 6.9 (6.3-8.2) g/dL Albumin 4.1 (3.5-5.0) g/dL HCG, Quant mIU/mL Urine Color Urine Appearance (Clear) Urine pH (5.0-8.0) Ur Specific Foster (1.001-1.035) Urine Protein (Negative) Urine Glucose (UA) (Negative) Urine Ketones (Negative) Urine Blood (Negative) Urine Nitrite (Negative) Urine Bilirubin (Negative) Urine Urobilinogen (<2.0) mg/dL Ur Leukocyte Esterase (Negative) Urine RBC (0-5) /hpf Urine WBC (0-5) /hpf Ur Squamous Epith Cells (0-4) /hpf Urine Bacteria (None) /hpf Hyaline Casts (0-2) /lpf Urine Mucus (None) /hpf Blood Type A Positive Blood Type Recheck A Pos Bld Type Recheck Status No Antibody Screen NEGATIVE Spec Expiration Date 02/24/2023 - 235002/21/23 02/21/23 Range/Units 17:51 21:13 WBC (3.8-10.6) k/uL RBC (3.80-5.40) m/uL Hgb (11.4-16.0) gm/dL Hct (34.0-46.0) % MCV (80.0-100.0) fL MCH (25.0-35.0) pg MCHC (31.0-37.0) g/dL RDW (11.5-15.5) % Plt Count (150-450) k/uL MPV Neutrophils % % Lymphocytes % % Monocytes % % Eosinophils % % Basophils % % Neutrophils # (1.3-7.7) k/uL Lymphocytes # (1.0-4.8) k/uL Monocytes # (0-1.0) k/uL Eosinophils # (0-0.7) k/uL Basophils # (0-0.2) k/uL Sodium (137-145) mmol/L Potassium (3.5-5.1) mmol/L Chloride (98-107) mmol/L Carbon Dioxide (22-30) mmol/L Anion Gap mmol/L BUN (7-17) mg/dL Creatinine (0.52-1.04) mg/dL Est GFR (CKD-EPI)AfAm (>60 ml/min/1.73 sqM) Est GFR (CKD-EPI)NonAf (>60 ml/min/1.73 sqM) Glucose (74-99) mg/dL Calcium (8.4-10.2) mg/dL Total Bilirubin (0.2-1.3) mg/dL AST (14-36) U/L ALT (4-34) U/L Alkaline Phosphatase (38-126) U/L Total Protein (6.3-8.2) g/dL Albumin (3.5-5.0) g/dL HCG, Quant 7.9 mIU/mL Urine Color Yellow Urine Appearance Cloudy H (Clear) Urine pH 7.0 (5.0-8.0) Ur Specific Foster 1.024 (1.001-1.035) Urine Protein Negative (Negative) Urine Glucose (UA) Negative (Negative) Urine Ketones Negative (Negative) Urine Blood Moderate H (Negative) Urine Nitrite Negative (Negative) Urine Bilirubin Negative (Negative) Urine Urobilinogen 3.0 (<2.0) mg/dL Ur Leukocyte Esterase Small H (Negative) Urine RBC 3 (0-5) /hpf Urine WBC 4 (0-5) /hpf Ur Squamous Epith Cells 8 H (0-4) /hpf Urine Bacteria Rare H (None) /hpf Hyaline Casts 1 (0-2) /lpf Urine Mucus Rare H (None) /hpf Blood Type Blood Type Recheck Bld Type Recheck Status Antibody Screen Spec Expiration Date Disposition <Sarah Monzon - Last Filed: 02/21/23 18:08> Is patient prescribed a controlled substance at d/c from ED?: No <Angle Okeefe - Last Filed: 02/22/23 01:54> Clinical Impression: Vaginal bleeding affecting early Disposition: HOME SELF-CARE Condition: Stable Instructions (If sedation given, give patient instructions): Threatened Miscarriage (ED) Additional Instructions: Please follow up with your MUSIC COMPOSITION TEACHER. Return to the emergency department for new or worsening symptoms. Referrals: None,Stated [Primary Care Provider] - 1-2 days
[2023-02-21 18:27] LABS: Basophils # (A) 0.1 k/uL (0-0.2); Basophils % (A) 1 %; Eosinophils # (A) 0.3 k/uL (0-0.7); Eosinophils % (A) 2 %; HCT 42.2 % (34.0-46.0); HGB 14.6 gm/dL (11.4-16.0); Lymphocytes # (A) 3.5 k/uL (1.0-4.8); Lymphocytes % (A) 31 %; MCH 29.9 pg (25.0-35.0); MCHC 34.6 g/dL (31.0-37.0); MCV 86.3 fL (80.0-100.0); Mean Platelet Volume 6.7; Monocytes # (A) 0.4 k/uL (0-1.0); Monocytes % (A) 4 %; Neutrophils # (A) 6.8 k/uL (1.3-7.7); Neutrophils % (A) 61 %; Platelet Count 358 k/uL (150-450); RBC 4.89 m/uL (3.80-5.40); RDW 12.2 % (11.5-15.5); WBC 11.2 k/uL (3.8-10.6)
[2023-02-21 18:36] LABS: ALT 46 U/L (4-34); AST 35 U/L (14-36); African American GFR (CKD) >90 (>60 ml/min/1.73 sqM); Albumin 4.1 g/dL (3.5-5.0); Alkaline Phosphatase 53 U/L (38-126); Anion Gap 11 mmol/L; Blood Urea Nitrogen 13 mg/dL (7-17); Calcium 9.3 mg/dL (8.4-10.2); Carbon Dioxide 24 mmol/L (22-30); Chloride 106 mmol/L (98-107); Glucose 94 mg/dL (74-99); Non-African American GFR(CKD) >90 (>60 ml/min/1.73 sqM); Potassium 4.1 mmol/L (3.5-5.1); Sodium 141 mmol/L (137-145); Total Bilirubin 0.4 mg/dL (0.2-1.3); Total Protein 6.9 g/dL (6.3-8.2)
--- NOTE | 2023-02-21 20:57 | US ---
EXAMINATION TYPE: Transabdominal DATE OF EXAM: 02/21/2023 6:44 PM COMPARISON: NONE CLINICAL INDICATION: Female, 22 years old with history of pain; bleeding x 1 day EXAM PERFORMED: Transvaginal (TV) and Transabdominal (TA) EXAM MEASUREMENTS: GESTATIONAL AGE / DATING Physician Established: Not yet established Dates by LMP: 01/21/23 (4 weeks/3 days) EDC: 10/28/23 Dates by First Scan: No previous this is first scan Dates by Current Scan for: No IUP seen at this time MATERNAL ANATOMY Uterus: 7.2 x 4.8 x 4.7cm Right Ovary: 3.0 x 1.5 x 1.5cm Left Ovary: 2.3 x 1.8 x 1.0cm Post CDS / Adnexa: wnl Presence of free fluid: No Presence of corpus luteal cyst: No Presence of subchorionic bleed: No GESTATION / SURVEY CRL: Not seen MSD: Not seen IUP: No IUP seen at this time Date of LMP: 01/21/23 Beta HcG (if available): Pt states she got her hCG done at OB office and results today was 12 No evidence for a gestational sac seen. Hypoechoic area seen in fundus measuring 1.4 x 1.4 x 0.7cm. H ypoechoic area seen in cervix measuring 1.3 x 0.9 x 0.6cm IMPRESSION: No evidence of intrauterine gestational sac at this time. Several possibilities exist which include n ormal early IUP, missed spontaneous , and ectopic . Serial beta hCG and/or ultrasoun d recommended.
[2023-02-21 21:26] VITALS: RESP 18
[2023-02-21 21:57] LABS: Appearance,Urine Cloudy (Clear); Bacteria,Urine Rare /hpf; Bilirubin,Urine Negative (Negative); Blood,Urine Moderate (Negative); Color,Urine Yellow; Glucose,Urine (UA) Negative (Negative); Hyaline Casts,Urine 1 /lpf (0-2); Ketones,Urine Negative (Negative); Leukocyte Esterase,Urine Small (Negative); Mucus,Urine Rare /hpf; Nitrite,Urine Negative (Negative); Protein,Urine Negative (Negative); RBC,Urine 3 /hpf (0-5); Specific Gravity,Urine 1.024 (1.001-1.035); Squamous Epithelial Cell,Urine 8 /hpf (0-4); WBC,Urine 4 /hpf (0-5)
[2023-02-21 22:15] VITALS: BP 120/87; PULSE 71
== END 2023-02-21 21:58 | disposition home or self-care (01) ==
LOC: EC 17:03
DX: O20.9 Hemorrhage in early pregnancy, unspecified (principal); O99.321 Drug use complicating pregnancy, first trimester; F12.90 Cannabis use, unspecified, uncomplicated; Z3A.01 Less than 8 weeks gestation of pregnancy
CPT/HCPCS: 36415; 76801; 76817; 80053; 81001; 84702; 85025; 86850; 86900; 86901; 99284

== ENCOUNTER 2023-04-27 13:25 | Emergency (ER) | payer OTHER ==
[2023-04-27 14:11] VITALS: RESP 18; TEMP 98.2
--- NOTE | 2023-04-27 15:24 | ED ---
Abdominal Pain HPI - General Chief Complaint: Abdominal Pain Stated Complaint: 5 weeks preg/cramping Time Seen by Provider: 04/27/23 13:51 Source: patient, RN notes reviewed Mode of arrival: ambulatory Limitations: no limitations - History of Present Illness Initial Comments: This is a 22 year old female who presents to the emergency department for pelvic pain/cramping in . Patient is 5-6 weeks and . Over the last 3-4 days she has had intermittent cramping in the right-sided pelvic area. States that the symptoms feels like labor pains. Denies any vaginal bleeding or discharge. Denies any nausea or vomiting. MD Complaint: abdominal pain - Related Data Home Medications Medication Instructions Recorded Confirmed Ondansetron [Zofran] 1 tab PO DAILY 07/14/20 07/14/20 Previous Rx's Medication Instructions Recorded Ibuprofen [Motrin] 600 mg PO QID #40 tab 07/16/20 oxyCODONE HCL [OxyIR] 5 mg PO Q4HR PRN #20 tab 07/16/20 Lidocaine 5% Patch [Lidoderm 5% 1 patch TOPICAL DAILY PRN 14 Days 09/24/22 Patch] #14 patch Cephalexin [Keflex] 500 mg PO Q6HR #40 cap 11/05/22 Ibuprofen [Motrin] 800 mg PO Q6HR #30 tab 11/05/22 Sulfamethox-Tmp 800-160Mg [Bactrim 1 each PO Q12HR #20 tab 11/05/22 Ds] Albuterol Inhaler [Ventolin Hfa 1 - 2 puff INHALATION Q6H PRN #1 11/26/22 Inhaler] each Benzonatate [Tessalon Perles] 100 mg PO TID PRN #15 capsule 11/26/22 predniSONE 10 mg PO DIRECTED #12 tab 11/26/22 Allergies Allergy/AdvReac Type Severity Reaction Status Date / Time prochlorperazine edisylate Allergy Unknown Verified 04/27/23 13:43 [From Compazine] prochlorperazine maleate Allergy Unknown Verified 04/27/23 13:43 [From Compazine] Review of Systems ROS Statement: Those systems with pertinent positive or pertinent negative responses have been documented in the HPI. ROS Other: All systems not noted in ROS Statement are negative. Past Medical History Past Medical History: No Reported History Additional Past Medical History / Comment(s): pt has hx of anxiety, endometriosis, and ovarian cysts History of Any Multi-Drug Resistant Organisms: MRSA Date of last positivie culture/infection: 11/05/22 MDRO Source:: Right Leg Past Surgical History: Appendectomy, Section Past Psychological History: No Psychological Hx Reported Smoking Status: Never smoker Past Alcohol Use History: Occasional Past Drug Use History: Marijuana - Past Family History Mother Family Medical History: No Reported History General Exam Limitations: no limitations General appearance: alert, in no apparent distress Head exam: Present: atraumatic, normocephalic, normal inspection Respiratory exam: Present: normal lung sounds bilaterally. Absent: respiratory distress, wheezes, rales, rhonchi, stridor Cardiovascular Exam: Present: regular rate, normal rhythm, normal heart sounds. Absent: systolic murmur, diastolic murmur, rubs, gallop, clicks Neurological exam: Present: alert, oriented X3, CN II-XII intact Psychiatric exam: Present: normal affect, normal mood Skin exam: Present: warm, dry, intact, normal color. Absent: rash Course Vital Signs 04/27/23 04/27/23 13:40 17:12 Temperature 98.2 F Pulse Rate 86 70 Respiratory 18 18 Rate Blood Pressure 119/76 104/70 O2 Sat by Pulse 98 98 Oximetry Medical Decision Making - Medical Decision Making This is a 22 year old female who presents to the emergency department for abdominal pain. Was pt. sent in by a medical professional or institution? @ -No Did you speak to anyone other than the patient for history? @ -No Did you review nursing and triage notes? @ -Yes, and I agree, it is accurate with regards to the patient's symptoms. Were old charts reviewed? @ -No Differential Diagnosis? @ -Differential Abdominal Pain Women: Appendicitis, Cholecystitis, diverticulosis, ischemic bowel, pancreatitis, hepatitis, UTI, gastroenteritis, AAA, incarcerated hernia, bowel obstruction, constipation, inflammatory bowel, hepatitis, peptic ulcer disease, splenic infarction, perforated viscus, vulvitis, ovarian torsion, PID, kidney stone, placenta abruption, this is not meant to be an all-inclusive list EKG interpreted by me (3pts min.)? @ -Not obtained X-rays interpreted by me (1pt min.)? @ -Not obtained CT interpreted by me (1pt min.)? @ -Not obtained U/S interpreted by me (1pt. min.)? @ -OB US obtained. My interpretation identifies an IUP. What testing was considered but not performed? (CT, X-rays, U/S, labs)? Why? @ -None What meds were considered but not given? Why? @ -None Did you discuss the management of the patient with other professionals? @ -No Did you reconcile home meds? @ -No Was smoking cessation discussed for >3mins.? @ -No Was critical care preformed (if so, how long)? @ -No Were there social determinants of health that impacted care today? How? (Homelessness, low income, unemployed, alcoholism, drug addiction, transportation, low edu. Level, literacy, decrease access to med. care, snf, rehab)? @ -No Was there de-escalation of care discussed even if they declined? (Discuss DNR or withdrawal of care, Hospice)? @ -No What co-morbidities impacted this encounter? (DM, HTN, Smoking, COPD, CAD, Ca ncer, CVA, Hep., AIDS, mental health diagnosis, sleep apnea, morbid obesity)? @ - Was patient admitted / discharged? @ -Discharged. Lab work obtained and found to be unremarkable. HCG count is 16,460. Urinalysis negative for signs of infection. ultrasound obtained demonstrating an IUP. No heartbeat was detected, likely due to the patient's early gestational age. Findings reviewed with the patient. Advised Tylenol as needed for pain relief and continuing to try and become established with an [facility] for ongoing obstetrics care. Patient discharged home in stable condition. Undiagnosed new problem with uncertain prognosis? @ -None Drug Therapy requiring intensive monitoring for toxicity (Heparin, Nitro, Insulin, Cardizem)? @ -None Were any procedures done? @ -None Diagnosis/symptom? @ -Abdominal pain in Acute, or Chronic, or Acute on Chronic? @ -Acute Uncomplicated (without systemic symptoms) or Complicated (systemic symptoms)? @ -Uncomplicated Side effects of treatment? @ -None Exacerbation, Progression, or Severe Exacerbation] @ -Not applicable Poses a threat to life or bodily function? @ -No Return precautions reviewed in depth, the patient is instructed to return to the emergency department with any new, worsening, or concerning symptoms. Patient verbalized understanding. This case was discussed in detail with the attending ED physician, Dr. Pearce. Presentation, findings, and treatment plan discussed in detail as well. - Lab Data Result diagrams: 04/27/23 15:29 04/27/23 15:29 Lab Results 04/27/23 04/27/23 04/27/23 Range/Units 15:29 15:29 15:29 WBC 8.9 (3.8-10.6) k/uL RBC 5.10 (3.80-5.40) m/uL Hgb 15.0 (11.4-16.0) gm/dL Hct 44.0 (34.0-46.0) % MCV 86.4 (80.0-100.0) fL MCH 29.4 (25.0-35.0) pg MCHC 34.0 (31.0-37.0) g/dL RDW 12.4 (11.5-15.5) % Plt Count 296 (150-450) k/uL MPV 6.6 Neutrophils % 59 % Lymphocytes % 31 % Monocytes % 5 % Eosinophils % 3 % Basophils % 1 % Neutrophils # 5.2 (1.3-7.7) k/uL Lymphocytes # 2.7 (1.0-4.8) k/uL Monocytes # 0.5 (0-1.0) k/uL Eosinophils # 0.3 (0-0.7) k/uL Basophils # 0.1 (0-0.2) k/uL Sodium 138 (137-145) mmol/L Potassium 4.1 (3.5-5.1) mmol/L Chloride 107 (98-107) mmol/L Carbon Dioxide 24 (22-30) mmol/L Anion Gap 7 mmol/L BUN 12 (7-17) mg/dL Creatinine 0.69 (0.52-1.04) mg/dL Est GFR (CKD-EPI)AfAm >90 (>60 ml/min/1.73 sqM) Est GFR (CKD-EPI)NonAf >90 (>60 ml/min/1.73 sqM) Glucose 82 (74-99) mg/dL Calcium 9.4 (8.4-10.2) mg/dL Total Bilirubin 0.5 (0.2-1.3) mg/dL AST 29 (14-36) U/L ALT 38 H (4-34) U/L Alkaline Phosphatase 48 (38-126) U/L Total Protein 6.9 (6.3-8.2) g/dL Albumin 4.1 (3.5-5.0) g/dL HCG, Quant 97817.2 mIU/mL Urine Color Light Yellow Urine Appearance Clear (Clear) Urine pH 6.5 (5.0-8.0) Ur Specific [place] 1.017 (1.001-1.035) Urine Protein Negative (Negative) Urine Glucose (UA) Negative (Negative) Urine Ketones Negative (Negative) Urine Blood Negative (Negative) Urine Nitrite Negative (Negative) Urine Bilirubin Negative (Negative) Urine Urobilinogen <2.0 (<2.0) mg/dL Ur Leukocyte Esterase Negative (Negative) Blood Type Blood Type Recheck Bld Type Recheck Status 04/27/23 Range/Units 15:29 WBC (3.8-10.6) k/uL RBC (3.80-5.40) m/uL Hgb (11.4-16.0) gm/dL Hct (34.0-46.0) % MCV (80.0-100.0) fL MCH (25.0-35.0) pg MCHC (31.0-37.0) g/dL RDW (11.5-15.5) % Plt Count (150-450) k/uL MPV Neutrophils % % Lymphocytes % % Monocytes % % Eosinophils % % Basophils % % Neutrophils # (1.3-7.7) k/uL Lymphocytes # (1.0-4.8) k/uL Monocytes # (0-1.0) k/uL Eosinophils # (0-0.7) k/uL Basophils # (0-0.2) k/uL Sodium (137-145) mmol/L Potassium (3.5-5.1) mmol/L Chloride (98-107) mmol/L Carbon Dioxide (22-30) mmol/L Anion Gap mmol/L BUN (7-17) mg/dL Creatinine (0.52-1.04) mg/dL Est GFR (CKD-EPI)AfAm (>60 ml/min/1.73 sqM) Est GFR (CKD-EPI)NonAf (>60 ml/min/1.73 sqM) Glucose (74-99) mg/dL Calcium (8.4-10.2) mg/dL Total Bilirubin (0.2-1.3) mg/dL AST (14-36) U/L ALT (4-34) U/L Alkaline Phosphatase (38-126) U/L Total Protein (6.3-8.2) g/dL Albumin (3.5-5.0) g/dL HCG, Quant mIU/mL Urine Color Urine Appearance (Clear) Urine pH (5.0-8.0) Ur Specific [place] (1.001-1.035) Urine Protein (Negative) Urine Glucose (UA) (Negative) Urine Ketones (Negative) Urine Blood (Negative) Urine Nitrite (Negative) Urine Bilirubin (Negative) Urine Urobilinogen (<2.0) mg/dL Ur Leukocyte Esterase (Negative) Blood Type A Positive Blood Type Recheck A Pos Bld Type Recheck Status No - Radiology Data Radiology results: report reviewed, image reviewed Disposition Clinical Impression: Abdominal pain affecting Disposition: HOME SELF-CARE Instructions (If sedation given, give patient instructions): Abdominal Pain in (ED) Additional Instructions: Return to the emergency department with any new, worsening, or concerning symptoms. Take Tylenol as needed for pain relief. Continue trying to become established with an [facility]. Is patient prescribed a controlled substance at d/c from ED?: No Referrals: None,Stated [Primary Care Provider] - 1-2 days Crys Pearson DO [Doctor of Osteopathic Medicine] - 1-2 days Time of Disposition: 17:06
[2023-04-27 15:42] LABS: Appearance,Urine Clear (Clear); Bilirubin,Urine Negative (Negative); Blood,Urine Negative (Negative); Color,Urine Light Yellow; Glucose,Urine (UA) Negative (Negative); Ketones,Urine Negative (Negative); Leukocyte Esterase,Urine Negative (Negative); Nitrite,Urine Negative (Negative); PH, Urine 6.5 (5.0-8.0); Protein,Urine Negative (Negative); Specific Gravity,Urine 1.017 (1.001-1.035); Urobilinogen,Urine <2.0 mg/dL (<2.0)
[2023-04-27] MEDS: ACETAMINOPHEN TAB 500 MG TAB PO STA (15:43)
[2023-04-27 15:48] LABS: Basophils # (A) 0.1 k/uL (0-0.2); Basophils % (A) 1 %; Eosinophils # (A) 0.3 k/uL (0-0.7); Eosinophils % (A) 3 %; Lymphocytes # (A) 2.7 k/uL (1.0-4.8); Lymphocytes % (A) 31 %; MCH 29.4 pg (25.0-35.0); MCV 86.4 fL (80.0-100.0); Mean Platelet Volume 6.6; Monocytes # (A) 0.5 k/uL (0-1.0); Monocytes % (A) 5 %; Neutrophils # (A) 5.2 k/uL (1.3-7.7); Neutrophils % (A) 59 %; Platelet Count 296 k/uL (150-450); RDW 12.4 % (11.5-15.5); WBC 8.9 k/uL (3.8-10.6)
[2023-04-27 15:54] LABS: ALT 38 U/L (4-34); AST 29 U/L (14-36); African American GFR (CKD) >90 (>60 ml/min/1.73 sqM); Albumin 4.1 g/dL (3.5-5.0); Alkaline Phosphatase 48 U/L (38-126); Anion Gap 7 mmol/L; Blood Urea Nitrogen 12 mg/dL (7-17); Calcium 9.4 mg/dL (8.4-10.2); Carbon Dioxide 24 mmol/L (22-30); Chloride 107 mmol/L (98-107); Glucose 82 mg/dL (74-99); Non-African American GFR(CKD) >90 (>60 ml/min/1.73 sqM); Potassium 4.1 mmol/L (3.5-5.1); Sodium 138 mmol/L (137-145); Total Bilirubin 0.5 mg/dL (0.2-1.3); Total Protein 6.9 g/dL (6.3-8.2)
[2023-04-27 16:36] LABS: HCG,Quantitative Serum 16460.2 mIU/mL
--- NOTE | 2023-04-27 16:58 | US ---
EXAMINATION TYPE: Transabdominal DATE OF EXAM: 04/27/2023 4:44 PM COMPARISON: NONE CLINICAL INDICATION: Female, 22 years old with history of Pelvic pain in ; Cramping x few da ys without bleeding; A1 EXAM PERFORMED: Transvaginal (TV) and Transabdominal (TA) EXAM MEASUREMENTS: GESTATIONAL AGE / DATING Physician Established: (5 weeks/3 days) EDC: 12/25/2023 Dates by LMP: 03/20/2023 ( weeks/ days) EDC: Dates by First Scan: No previous this is first scan ( weeks/ days) EDC: Dates by Current Scan for: (5 weeks/5 days) EDC: 12/23/2023 MATERNAL ANATOMY Uterus: 7.0 x 5.8 x 4.8 cm Right Ovary: 3.9 x 4.2 x 4.0 cm Left Ovary: 2.8 x 1.8 x 2.9 cm Post CDS / Adnexa: no Presence of free fluid: no Presence of corpus luteal cyst: no Presence of subchorionic bleed: ? GESTATION / SURVEY CRL: 0.23 (5 weeks/5 days) MSD: 1.30 (5 weeks/4 days) Yolk Sac (normal less than 6mm): 3.2 mm Heart Rate: Not able to obtain - too early bpm Rhythm: Unable to assess IUP: Yes - unable to determine viability Nuchal Translucency 10-14wks (normal less than 3mm): NA Age Appropriate Anatomy Cord Insertion: NA Limbs: NA Calvarium: NA Date of LMP: 03/20/2023 Beta HcG (if available): 82888 IMPRESSION: 1Intrauterine with ultrasound age of 5 weeks 5 days. heart rate is not detected at th is time, likely due to early . Close clinical follow-up with serial beta hCG and short-term follow-up ultrasound is recommended.
[2023-04-27 17:39] VITALS: BP 104/70; PULSE 70
== END 2023-04-27 17:19 | disposition home or self-care (01) ==
LOC: EC 13:25
DX: O26.891 Other specified pregnancy related conditions, first trimester (principal); R10.9 Unspecified abdominal pain; O99.321 Drug use complicating pregnancy, first trimester; F12.90 Cannabis use, unspecified, uncomplicated; Z88.8 Allergy status to other drugs, medicaments and biological substances; Z3A.01 Less than 8 weeks gestation of pregnancy
CPT/HCPCS: 36415; 76801; 76817; 80053; 81003; 84702; 85025; 86900; 86901; 99284

== ENCOUNTER 2023-05-12 22:44 | Emergency (ER) | payer OTHER ==
[2023-05-12 23:12] VITALS: RESP 18; TEMP 97.7
--- NOTE | 2023-05-12 23:40 | ED ---
General Adult HPI - General Chief complaint: OB/Uterine Contractions Stated complaint: vaginal bleeding Time Seen by Provider: 05/12/23 22:58 Source: patient Mode of arrival: ambulatory Limitations: no limitations - History of Present Illness Initial comments: 22-year-old female presenting to the ED with a chief complaint of vaginal bleeding. Patient states she had medically induced performed this afternoon with misoprostol amd mifeoristone. Patient reports after taking her pills when she got home started to experience heavy vaginal bleeding. Reports that she has gone through 3-4 pads every hour. No lightheadedness or dizziness. Patient states that she is approximately 7 weeks prior to induction of . No other complaints at this time. - Related Data Home Medications Medication Instructions Recorded Confirmed Ondansetron [Zofran] 1 tab PO DAILY 07/14/20 07/14/20 Previous Rx's Medication Instructions Recorded Ibuprofen [Motrin] 600 mg PO QID #40 tab 07/16/20 oxyCODONE HCL [OxyIR] 5 mg PO Q4HR PRN #20 tab 07/16/20 Lidocaine 5% Patch [Lidoderm 5% 1 patch TOPICAL DAILY PRN 14 Days 09/24/22 Patch] #14 patch Cephalexin [Keflex] 500 mg PO Q6HR #40 cap 11/05/22 Ibuprofen [Motrin] 800 mg PO Q6HR #30 tab 11/05/22 Sulfamethox-Tmp 800-160Mg [Bactrim 1 each PO Q12HR #20 tab 11/05/22 Ds] Albuterol Inhaler [Ventolin Hfa 1 - 2 puff INHALATION Q6H PRN #1 11/26/22 Inhaler] each Benzonatate [Tessalon Perles] 100 mg PO TID PRN #15 capsule 11/26/22 predniSONE 10 mg PO DIRECTED #12 tab 11/26/22 Allergies Allergy/AdvReac Type Severity Reaction Status Date / Time prochlorperazine edisylate Allergy Unknown Verified 04/27/23 13:43 [From Compazine] prochlorperazine maleate Allergy Unknown Verified 04/27/23 13:43 [From Compazine] Review of Systems ROS Statement: Those systems with pertinent positive or pertinent negative responses have been documented in the HPI. ROS Other: All systems not noted in ROS Statement are negative. Past Medical History Past Medical History: No Reported History Additional Past Medical History / Comment(s): pt has hx of anxiety, endometriosis, and ovarian cysts History of Any Multi-Drug Resistant Organisms: MRSA Date of last positivie culture/infection: 11/05/22 MDRO Source:: Right Leg Past Surgical History: Appendectomy, Section Past Psychological History: No Psychological Hx Reported Smoking Status: Never smoker Past Alcohol Use History: Occasional Past Drug Use History: Marijuana - Past Family History Mother Family Medical History: No Reported History General Exam Limitations: no limitations General appearance: alert, in no apparent distress Eye exam: Present: normal appearance Neck exam: Present: normal inspection Respiratory exam: Present: normal lung sounds bilaterally Cardiovascular Exam: Present: regular rate, normal rhythm GI/Abdominal exam: Present: soft External exam: Present: other (Exam chaperoned by virtual RN. Large amounts of fresh vaginal bleeding obscuring the cervix.) Course Vital Signs 05/12/23 05/12/23 05/13/23 22:49 23:45 00:00 Temperature 97.7 F Pulse Rate 93 85 85 Respiratory 18 18 18 Rate Blood Pressure 126/86 119/76 102/63 O2 Sat by Pulse 98 98 98 Oximetry 05/13/23 05/13/23 05/13/23 00:30 01:00 01:30 Temperature Pulse Rate 83 73 77 Respiratory 18 18 18 Rate Blood Pressure 101/69 96/60 99/67 O2 Sat by Pulse 99 98 100 Oximetry 05/13/23 03:30 Temperature Pulse Rate 82 Respiratory 18 Rate Blood Pressure 109/66 O2 Sat by Pulse 100 Oximetry Medical Decision Making - Medical Decision Making Was pt. sent in by a medical professional or institution (, PA, RN SCHOOL, urgent care, hospital, or shelter...) When possible be specific @ -No Did you speak to anyone other than the patient for history (EMS, parent, family, police, friend...)? What history was obtained from this source @ -No Did you review nursing and triage notes (agree or disagree)? Why? @ -I reviewed and agree with nursing and triage notes Were old charts reviewed (outside hosp., previous admission, EMS record, old EKG, old radiological studies, urgent care reports/EKG's, shelter records)? Report findings @ -No old charts were reviewed Differential Diagnosis (chest pain, altered mental status, abdominal pain women, abdominal pain men, vaginal bleeding, weakness, fever, dyspnea, syncope, headache, dizziness, GI bleed, back pain, seizure, CVA, palpatations, mental health, musculoskeletal)? @ - differential Vaginal Bleeding: Spontaneous , threatened , molar , ectopic , bloody show, incompetent cervix, abruptioplacenta, placenta previa, uterine rupture, dysfunctional uterine bleeding, hemorrhage, uterine fibroids, this is not meant to be an all-inclusive list. EKG interpreted by me (3pts min.). @ -As above X-rays interpreted by me (1pt min.). @ -None done CT interpreted by me (1pt min.). @ -None done U/S interpreted by me (1pt. min.). @ -Ultrasound interpreted me showing possible retained products of conception in the lower endometrial canal What testing was considered but not performed or refused? (CT, X-rays, U/S, labs)? Why? @ -None What meds were considered but not given or refused? Why? @ -None Did you discuss the management of the patient with other professionals (professionals i.e. , PA, RN SCHO[employer], lab, RT, psych nurse, social secretary, lift driver, teacher, space officer, oil field caser)? Give summary @ -No Was smoking cessation discussed for >3mins.? @ -No Was critical care preformed (if so, how long)? @ -No Were there social determinants of health that impacted care today? How? (Homelessness, low income, unemployed, alcoholism, drug addiction, transportation, low edu. Level, literacy, decrease access to med. care, shelter, rehab)? @ -No Was there de-escalation of care discussed even if they declined (Discuss DNR or withdrawal of care, Hospice)? DNR status @ -No What co-morbidities impacted this encounter? (DM, HTN, Smoking, COPD, CAD, Cancer, CVA, ARF, Chemo, Hep., AIDS, mental health diagnosis, sleep apnea, morbid obesity)? @ -/ Was patient admitted / discharged? Hospital course, mention meds given and route, prescriptions, significant lab abnormalities, going to OR and other pertinent info. @ -Discharge 32-year-old female presenting to the ED with complaints of heavy vaginal bleeding onset today after with misoprostol and mifepristone. Laboratory studies reviewed. CBC shows hemoglobin stable at 13.2. Chemistry panel largely unremarkable. Patient blood type A+. Upon initial examination, did have large amount of active vaginal bleeding with large amount of clots. Did not visualize any tissue during initial evaluation. During patient stay in the ED did pass multiple clots. Examination of these did not reveal any tissue. Repeat examination did show significantly decreased amount of vag inal bleeding and during patient stay in the ED she stopped passing large clots and is only having scant vaginal bleeding. At this time patient is hemodynamically stable. Discharged home with instructions to follow-up with [facility]. Discussed strict return precautions with patient who verbalized agr eement. Undiagnosed new problem with uncertain prognosis? @ -No Drug Therapy requiring intensive monitoring for toxicity (Heparin, Nitro, Insulin, Cardizem)? @ -No Were any procedures done? @ -No Diagnosis/symptom? @ -Vaginal bleeding Acute, or Chronic, or Acute on Chronic? @ -Acute Uncomplicated (without systemic symptoms) or Complicated (systemic symptoms)? @ -Uncomplicated Side effects of treatment? @ -Yes, vaginal bleeding secondary to medically induced with misoprostol and Mifepristone Exacerbation, Progression, or Severe Exacerbation? @ -No Poses a threat to life or bodily function? How? (Chest pain, [place], [place], pneumonia, PE, COPD, DKA, ARF, appy, cholecystitis, CVA, Diverticulitis, Homicidal, Suicidal, threat to staff... and all critical care pts) @ -No - Lab Data Result diagrams: 05/13/23 00:33 05/13/23 00:33 Lab Results 05/13/23 05/13/23 05/13/23 Range/Units 00:30 00:33 00:33 WBC 10.6 (3.8-10.6) k/uL RBC 4.29 (3.80-5.40) m/uL Hgb 13.2 (11.4-16.0) gm/dL Hct 37.1 (34.0-46.0) % MCV 86.4 (80.0-100.0) fL MCH 30.8 (25.0-35.0) pg MCHC 35.6 (31.0-37.0) g/dL RDW 12.3 (11.5-15.5) % Plt Count 302 (150-450) k/uL MPV 6.8 Neutrophils % 65 % Lymphocytes % 27 % Monocytes % 4 % Eosinophils % 2 % Basophils % 0 % Neutrophils # 6.9 (1.3-7.7) k/uL Lymphocytes # 2.9 (1.0-4.8) k/uL Monocytes # 0.4 (0-1.0) k/uL Eosinophils # 0.2 (0-0.7) k/uL Basophils # 0.0 (0-0.2) k/uL Sodium 134 L (137-145) mmol/L Potassium 3.8 (3.5-5.1) mmol/L Chloride 107 (98-107) mmol/L Carbon Dioxide 18 L (22-30) mmol/L Anion Gap 9 mmol/L BUN 9 (7-17) mg/dL Creatinine 0.60 (0.52-1.04) mg/dL Est GFR (CKD-EPI)AfAm >90 (>60 ml/min/1.73 sqM) Est GFR (CKD-EPI)NonAf >90 (>60 ml/min/1.73 sqM) Glucose 108 H (74-99) mg/dL Calcium 8.9 (8.4-10.2) mg/dL Total Bilirubin 0.8 (0.2-1.3) mg/dL AST 39 H (14-36) U/L ALT 63 H (4-34) U/L Alkaline Phosphatase 49 (38-126) U/L Total Protein 6.2 L (6.3-8.2) g/dL Albumin 3.6 (3.5-5.0) g/dL Blood Type A Positive Blood Type Recheck A Pos Bld Type Recheck Status No Antibody Screen NEGATIVE Spec Expiration Date 05/16/20232329 Disposition Clinical Impression: Vaginal bleeding, Disposition: HOME SELF-CARE Condition: Good Instructions (If sedation given, give patient instructions): Misoprostol (By mouth), Mifepristone (By mouth) Additional Instructions: Please return to the Emergency Department if symptoms worsen or any other concerns. Please follow-up with [facility]. Is patient prescribed a controlled substance at d/c from ED?: No Referrals: None,Stated [Primary Care Provider] - 1-2 days Nova Diaz MD [STAFF PHYSICIAN] - 1-2 days
[2023-05-13] MEDS: SODIUM CHLORIDE 0.9% 1,000 ML IV ONE (00:45)
[2023-05-13 00:55] LABS: Basophils % (A) 0 %; Eosinophils # (A) 0.2 k/uL (0-0.7); Eosinophils % (A) 2 %; HCT 37.1 % (34.0-46.0); HGB 13.2 gm/dL (11.4-16.0); Lymphocytes # (A) 2.9 k/uL (1.0-4.8); Lymphocytes % (A) 27 %; MCH 30.8 pg (25.0-35.0); MCHC 35.6 g/dL (31.0-37.0); MCV 86.4 fL (80.0-100.0); Mean Platelet Volume 6.8; Monocytes # (A) 0.4 k/uL (0-1.0); Monocytes % (A) 4 %; Neutrophils # (A) 6.9 k/uL (1.3-7.7); Neutrophils % (A) 65 %; Platelet Count 302 k/uL (150-450); RBC 4.29 m/uL (3.80-5.40); RDW 12.3 % (11.5-15.5); WBC 10.6 k/uL (3.8-10.6)
[2023-05-13 01:10] LABS: ALT 63 U/L (4-34); AST 39 U/L (14-36); African American GFR (CKD) >90 (>60 ml/min/1.73 sqM); Albumin 3.6 g/dL (3.5-5.0); Alkaline Phosphatase 49 U/L (38-126); Anion Gap 9 mmol/L; Blood Urea Nitrogen 9 mg/dL (7-17); Calcium 8.9 mg/dL (8.4-10.2); Carbon Dioxide 18 mmol/L (22-30); Chloride 107 mmol/L (98-107); Glucose 108 mg/dL (74-99); Non-African American GFR(CKD) >90 (>60 ml/min/1.73 sqM); Potassium 3.8 mmol/L (3.5-5.1); Sodium 134 mmol/L (137-145); Total Bilirubin 0.8 mg/dL (0.2-1.3); Total Protein 6.2 g/dL (6.3-8.2)
--- NOTE | 2023-05-13 01:40 | US ---
EXAM: US First Trimester , Transabdominal CLINICAL HISTORY: ITS.REASON US Reason: heavy VB TECHNIQUE: Real-time transabdominal obstetrical ultrasound of the maternal pelvis and a first trimester with image documentation. COMPARISON: No previous studies. FINDINGS: Gestation: Early intrauterine or ectopic gestation is cannot be excluded and clinical correlation and correlation with laboratory values are advised. No intrauterine gestation. Placenta/amniotic fluid: Cannot be adequately evaluated due to the early gestational age. Uterus/cervix: Heterogeneity of the lower endometrial stripe which could represent retained products of conception. Right ovary measures 3. 2 x 1.7 x 2.1 cm is. The uterus measures 10.1 x 4.5 x 4.9 cm. Endometrial stripe measures 0.87 cm in thickness. No myometrial mass. Ovaries: Left ovary measures 2.6 x 1.7 x 2 cm. Flow to both ovaries noted. Free fluid: No free fluid. IMPRESSION: 1. Flow to both ovaries noted. 2. Possible retained products of conception of the lower endometrial canal. This finding is equivocal requires clinical correlation. 3. No intrauterine gestation is noted.
[2023-05-13 04:01] VITALS: BP 109/66; PULSE 82
== END 2023-05-13 04:15 | disposition home or self-care (01) ==
LOC: EC 22:44
DX: O03.9 Complete or unspecified spontaneous abortion without complication (principal); O99.321 Drug use complicating pregnancy, first trimester; F12.90 Cannabis use, unspecified, uncomplicated; Z88.8 Allergy status to other drugs, medicaments and biological substances
CPT/HCPCS: 36415; 76801; 80053; 85025; 86850; 86900; 86901; 96360; 96361; 99284